=== PATIENT | male | born 1965 | race Caucasian/White ===

== ENCOUNTER → 2017-03-07 | Day surgery (SDC) | payer OTHER ==
[~2017-03-07] MED LIST: Lactated Ringers 500 ML IV SCH; Propofol 200 MG/20 ML SDV IV ONE
--- NOTE | 2017-03-08 07:30 | OR ---
DATE OF OPERATION: 03/07/2017 PREOPERATIVE DIAGNOSIS: COLON SCREENING. POSTOPERATIVE DIAGNOSIS: COLON SCREENING. SURGEON: Jamar Raya MD PROCEDURE: COLONOSCOPY. ANESTHESIA: IV sedation by SMELTER CHARGER. DESCRIPTION OF PROCEDURE: After the patient was placed in left lateral position, colonoscope was introduced into anal canal from where it was maneuvered into rectum, then into sigmoid colon, gradually up the descending colon across the splenic flexure into transverse colon, across the hepatic flexure into ascending colon down to cecum. Multiple photographs were taken. The colonoscope was gradually withdrawn. There was no evidence of any tumor mass, any polypoid lesion, or any inflammatory process. The patient tolerated the procedure well and left the operating room in satisfactory condition. KRISTYN/FELICITA /[id number]
== END ==
LOC: CC.SDS 10:54
PROVIDERS: ATTEND Surgery
DX: Z12.11 Encounter for screening for malignant neoplasm of colon (principal); K21.9 Gastro-esophageal reflux disease without esophagitis; E78.5 Hyperlipidemia, unspecified; Z79.899 Other long term (current) drug therapy; E34.9 Endocrine disorder, unspecified
CPT/HCPCS: 45378; J2704; J7120

== ENCOUNTER → 2019-03-22 | Day surgery (SDC) | payer OTHER ==
[~2019-03-22] MED LIST changes: +Lactated Ringers 1,000 ML IV SCH; -Lactated Ringers 500 ML IV SCH; +Lidocaine 1% with EPINEPHrine 1:100,000 20 ML MDV ONE; +Midazolam 1 MG/ML 2 ML SDV IV ONE; +fentaNYL 100 MCG/2 ML SDV IVPUSH ONE
--- NOTE | 2019-03-23 00:09 | OR ---
DATE OF OPERATION: 03/22/2019 PREOPERATIVE DIAGNOSIS: RECTAL BLEEDING AND EXTERNAL SKIN TAG WITH A HISTORY OF HEMORRHOID. POSTOPERATIVE DIAGNOSIS: RECTAL BLEEDING AND EXTERNAL SKIN TAG WITH A HISTORY OF HEMORRHOID. SURGEON: Palmer Walters MD PROCEDURE: EXCISION OF POSTERIOR ANAL SKIN TAG AND EXAM UNDER ANESTHESIA. ANESTHESIA: Local plus MAC. SPECIMEN: Skin tag. INDICATIONS: This 53-year-old male has quite a large skin tag. It measures almost a centimeter or so in length and diameter. He also has a history of rectal bleeding and a history of prior hemorrhoids. FINDINGS: Skin tag. No internal hemorrhoids noted. DESCRIPTION OF PROCEDURE: After adequate preparation, 1% Xylocaine was used to do a perianal block along with anesthesia sedation. Examination showed this large skin tag. This was grasped with an Allis clamp and cautery was used to amputate it from the skin. The defect in the skin was then closed using 3-0 Vicryl suture. Examination of the intra-anal canal did not show any evidence of hemorrhoids. I planned on banding an internal hemorrhoid if one was present, but he really does not have any tissue to band. The rest of the examination anally and perianally was normal. The patient was taken to recovery. GILBERTO/FELICITA /[id number]
== END ==
LOC: CC.SDS 15:23
PROVIDERS: ATTEND Surgery
DX: K64.4 Residual hemorrhoidal skin tags (principal); K62.5 Hemorrhage of anus and rectum; K21.9 Gastro-esophageal reflux disease without esophagitis; E78.5 Hyperlipidemia, unspecified; M19.90 Unspecified osteoarthritis, unspecified site; Z87.19 Personal history of other diseases of the digestive system
CPT/HCPCS: 46220; J2250; J2704; J3010; J7120